=== PATIENT | female | born 2005 | race Caucasian/White ===

== ENCOUNTER → 2024-08-04 13:10 | Outpatient (BNVA) | payer BC, SELFPAY | PROVIDERS: Family Provider Pediatrics Adolescent Medicine; Visit Provider Nurse Practitioner Family | DX: J02.9 Acute pharyngitis, unspecified (principal) | CPT/HCPCS: 87071; 87400; 87880 ==

== ENCOUNTER → 2024-12-02 14:02 | Outpatient (BNVA) | payer BC, SELFPAY | PROVIDERS: Family Provider Pediatrics Adolescent Medicine; Visit Provider Nurse Practitioner Family | DX: R30.0 Dysuria (principal); N39.0 Urinary tract infection, site not specified | CPT/HCPCS: 81003; 87086 ==

== ENCOUNTER 2025-03-02 05:52 | Day surgery (SDC) | payer BC, SELFPAY ==
[2025-03-02] VITALS (9 sets, daily range): BP systolic 90–128; BP diastolic 60–96; PULSE 64–82; RESP 10–20; TEMP 36.1–36.7; O2SAT 94–100; BMI 22.6
--- NOTE | 2025-03-02 06:38 | ANES.PREANE2 ---
Pre-Anesthetic Assessment Height/Weight: Height 5 ft 8 in Weight 149 lb Temp Pulse Resp BP Pulse Ox O2 Del Method 97.3 F L 64 16 105/64 100 Room Air 03/02/25 06:12 03/02/25 06:12 03/02/25 06:12 03/02/25 06:12 03/02/25 06:12 03/02/25 06:12 Preop Diagnosis: Spontaneous Operation Date: 03/02/25 07:00 Proposed Procedures p Dilation And Curettage (D&C)(Not Applicable) - Rosa Nuñez MD Was Beta Carson taken within 24 hours: N/A Was Clonidine taken within 24 hours: N/A Social No alcohol and No tobacco Exam alert, oriented x 3, clear to auscultation bilaterally and regular rate & rhythm Airway Submandibular: within normal limits Cervical ROM: within normal limits Mallampati: Class I Dentition: full Anesthetic Plan ASA status: 2 Anesthesia: General Other: Young healthy girl here for spontaneous . States she is approximately 13-14 weeks but on the last ultrasound baby was measuring 9 weeks and 6 days Patient has been experiencing anxiety with the whole situation and was placed on propranolol which she states helps a little Denies any pulmonary issues She has been taking Zofran for nausea but has not been throwing up for the last 3-4 days METs greater than 4 Plan for GETA Medications/Allergies Home Medications ?Medication ?Instructions ?Recorded ?Confirmed ?Last Taken ?Type ondansetron 4 mg disintegrating 4 mg PO Q8H PRN nausea and 12/02/24 03/02/25 03/02/25 04:50 Rx tablet vomiting #30 tabs propranolol 20 mg tablet 20 mg PO BID PRN Anxiety 03/01/25 03/02/25 03/02/25 04:50 History Allergies Allergy/AdvReac Type Severity Reaction Status Date / Time Sulfa (Sulfonamide Allergy Intermediate hives Verified 03/02/25 06:07 Antibiotics) Penicillins Allergy Mild RASH Verified 03/02/25 06:07 clindamycin Allergy ALGY-Rash Verified 03/02/25 06:07 Current Medications Generic Name Dose Route Start Last Admin Trade Name Freq PRN Reason Stop Dose Admin Sodium Chloride 1,000 mls @ 30 mls/hr 03/02/25 06:15 03/02/25 06:25 Sodium Chloride 0.9% IV 03/03/25 06:14 30 mls/hr .Q24H NOE Administration PFS Anesthesia Medical History Angioedema of lips Social History Smoking and tobacco/nicotine status: current every day tobacco/nicotine user (vapes) e-cigarettes
--- NOTE | 2025-03-02 07:02 | PM.HP ---
Providers/Chief Complaint Primary Care Provider: MISAEL Valietne Chief Complaint: O03.9 History of Present Illness Edward Engle is a 19 year old female who had a missed miscarriage at 9 weeks 3 days gestation. She is here for a scheduled D&C. Review of Systems Narrative: She has not had any fevers chills nausea vomiting, abdominal pain, vaginal bleeding Medications/Allergies Home Medications ?Medication ?Instructions ?Recorded ?Confirmed ?Last Taken ?Type ondansetron 4 mg disintegrating 4 mg PO Q8H PRN nausea and 12/02/24 03/02/25 03/02/25 04:50 Rx tablet vomiting #30 tabs propranolol 20 mg tablet 20 mg PO BID PRN Anxiety 03/01/25 03/02/25 03/02/25 04:50 History Allergies Allergy/AdvReac Type Severity Reaction Status Date / Time Sulfa (Sulfonamide Allergy Intermediate hives Verified 03/02/25 06:07 Antibiotics) Penicillins Allergy Mild RASH Verified 03/02/25 06:07 clindamycin Allergy ALGY-Rash Verified 03/02/25 06:07 PFSH Acute PFSH: Medical History (Updated 03/02/25 @ 07:03 by Rosa Nuñez MD) Angioedema of lips Social History Smoking and tobacco/nicotine status: current every day tobacco/nicotine user (vapes) e-cigarettes Vitals/I&O/Wt Last Vital Signs Temp 97.3 F L 03/02/25 06:12 Pulse 64 03/02/25 06:12 Resp 16 03/02/25 06:12 BP 105/64 03/02/25 06:12 Pulse Ox 100 03/02/25 06:12 O2 Del Method Room Air 03/02/25 06:12 Weight last 48 hrs Weight 67.585 kg Physical Exam Narrative: Alert and oriented, sitting up in bed, heart regular rate and rhythm, lungs clear to auscultation bilaterally, abdomen is soft and nontender, extremities have no edema and no calf tenderness A&P Assessment and plan 1. Incomplete miscarriage: Wrist benefits and alternatives of dilation and curettage have been discussed with the patient in detail. We will proceed with D&C this morning PDMP PDMP Reviewed: Not Reviewed Attestations Medical Necessity Statement*: Routine outpatient surgery and postoperative care Coding Level of Care Code Acute Code for Chg Fwd Diagnoses Incomplete miscarriage O03.4
[2025-03-02] MEDS: lidocaine-epi 2% PF 1:200,000 20 mL SDV XX (08:05)
--- NOTE | 2025-03-02 08:20 | PM.OP ---
Operative Report Date of procedure: March 02, 2025 Pre-op diagnosis: Incomplete miscarriage Procedure done: Suction D&C of uterus Pathology: Products of conception Surgeon: Rosa Nuñez MD Estimated blood loss (mL): 800 IV fluids (mL): 1,000 Procedure: After informed consent the patient was taken to the OR where general anesthesia was administered. She was prepped and draped in normal sterile fashion in dorsal lithotomy position. A weighted speculum was inserted into the vagina and the anterior cervix was grasped with a tenaculum. The uterus was sounded to 12 cm. The uterine os was then dilated using a series of dilators. A 9 mm suction curette was introduced and suction curettage was performed. This was alternated with sharp curette. Moon-pink tissue was seen protruding from the os and was grasped with a ring forcep and removed. After this was pulled from the opening of the os the patient began having very brisk bleeding. 800 mcg of misoprostol was placed rectally. Alternating sharp curettage and suction curettage were performed until it was felt that the inside of the uterus was free of any tissue and debris. During this time the patient began bucking and clenching, thus making the procedure a little more difficult. The bleeding subsided significantly. Bimanual was performed and the uterus was felt to be very low and contracted. 10 mL of 2 percent lidocaine with epinephrine was injected at 10 and 2 oclock. Patient was awakened in the OR went to recovery in good condition
--- NOTE | 2025-03-02 10:22 | ANE.PACU2 ---
Inpatient post-anesthesia follow up: Airway intact: Yes Vital signs: Temperature 98.0 F Pulse Rate 68 Respiratory Rate 16 Blood Pressure 90/60 Pulse Oximetry 100 Oxygen Delivery Me thod Room Air Oxygen Flow Rate Fraction of Inspir ed Oxygen Hydration adequate: Yes Nausea and vomiting: No Pain level: 1 Mental status: Baseline
== END 2025-03-02 10:23 | disposition home or self-care (01) ==
PROVIDERS: PCP Nurse Practitioner Family; Visit Provider Family Medicine
PROC: (CPT 58120; principal; 2025-03-02 07:00)
DX: O03.4 Incomplete spontaneous abortion without complication (principal); Z3A.09 9 weeks gestation of pregnancy; F17.290 Nicotine dependence, other tobacco product, uncomplicated
CPT/HCPCS: 59812; 86850; 86900; 88305; J0131; J1885; J2250; J2704; J3010; J7030; J9999